=== PATIENT | male | born 1955 | race Caucasian/White ===

== ENCOUNTER 2024-06-28 02:58 | Emergency (ER) | payer OTHER, SELFPAY ==
[2024-06-28 03:13] VITALS: BMI 29.4
--- NOTE | 2024-06-28 03:14 | DOWNTIME ---
There was a [employer] Occupational Downtime on 06/28/2024 from 0100 to 06/28/2024 at 0300. Downtime documentation of patient's care, including medication administrations, has been reconciled in the electronic record per guidelines. Refer to the
patient's paper chart under the miscellaneous tab to see printed paper medication records and downtime forms.
--- NOTE | 2024-06-28 03:16 | ED.GENMED ---
History of Present Illness
<SHAN Mireles - Last Filed: 06/28/24 05:52>
General
Chief Complaint: Abdominal Pain
Time Seen by Provider: 06/28/24 03:16
History of Present Illness
History of Present Illness:
Patient is a 68 year old male presenting to the ED with complaints of left flank and abdominal pain x 1 day. It started soon after he ate a salad with pickles in it and described it as a sharp pain that radiated from his left abdomen to his
left flank. Something like this has never happened before and he rates the pain an 8/10. He tried taking tums and Advil which did not alleviate symptoms. Patient states he tried eating bananas and drank and had a non-bloody vomit episode. He was
able to fall asleep and woke up this morning with not as much pain. Throughout the day he was fine until a couple of hours ago his pain flared up again. His last bowel movement was Wednesday and it was normal. Patient denies any chest pain palpitations
shortness of breath hematochezia fever dysuria changes in urinary frequency urgency.
Patient has a PMH of HTN controlled on medication. He has no allergies and denies any smoking or alcohol use. Patient denies any history of kidney stones, pancreatitis, gallstones, and diverticulitis. Patient states he has an appointment for a
colonoscopy in September.
Review of Systems
<SHAN Mireles - Last Filed: 06/28/24 05:52>
Review of Systems
Constitutional: Reports no symptoms
Respiratory: Reports no symptoms
Cardiac: Reports no symptoms
ABD/GI: Reports abdominal pain, nausea and vomiting
: Reports no symptoms
Phy Exam
<SHAN Mireles - Last Filed: 06/28/24 05:52>
Physical Exam
Physical Exam:
see physical
Cardiovascular Exam
Cardiovascular Exam: regular rate/rhythm, no edema, no gallop, no JVD and no murmur
Pulmonary Exam
Pulmonary Exam: lungs clear, no respiratory distress, no rales, chest non tender, no crackles, no rhonchi, no stridor, no wheezing and no cough
Gastrointestinal Exam
Gastrointestinal Exam: normal bowel sounds, no organomegaly, no pulsatile mass, non distended, cva tenderness and tender
Palpation: left lower quadrant: Moderate tenderness
Course
<SHAN Mireles - Last Filed: 06/28/24 05:52>
Orders/Labs/Results
Orders:
Orders
06/28/24
Electrocardiogram (*1) Stat
Reason for Study: Chest Pain
Comment: DONE
06/28/24 02:46
Complete Blood Count/With Diff Routine
Comprehensive Metabolic Panel Routine
Lipase Routine
Protime/PTT Routine
Troponin I Routine
Urinalysis Reflex To Culture Routine
Urine Microscopic Reflex Cult Routine
06/28/24 03:23
CT Abd/pel Without Iv Or Oral Urgent
Comment:
Reason For Exam: left flank pain\\
06/28/24 04:37
0.9% Sodium Chloride 1000 ml [Nss] 1,000 ml IV BOLUS
06/28/24 05:12
HYDROmorphone [Dilaudid] 0.5 mg IV NOW STA
Metoprolol [Lopressor] 5 mg IV NOW STA
06/28/24 05:43
Troponin I Urgent
Abnormal Lab Results
06/28/24
02:46
WBC 10.9 H 10^3/uL
(4.8-10.8)
MCH 32.1 H pg
(27.0-31.0)
MPV 10.5 H fL
(7.4-10.4)
Absolute Neuts (auto) 9.1 H 10^3/uL
(1.4-6.5)
Absolute Lymphs (auto) 0.8 L 10^3/uL
(1.2-3.4)
Absolute Monos (auto) 0.9 H 10^3/uL
(0.1-0.6)
Neutrophils % 83.8 H %
(42.2-75.2)
Lymphocytes % 7.3 L %
(20.5-51.1)
Carbon Dioxide 31 H mmol/L
(22-30)
Creatinine 1.8 H mg/dL
(0.7-1.3)
Glucose 114 H mg/dl
(70-99)
Calcium 10.7 H mg/dl
(8.4-10.2)
Ur Occult Blood Reflex 2+ A
(Negative)
Urine RBC 30-40 A /HPF
(0-2)
06/28/24 02:46
06/28/24 02:46
Vital Signs
Initial and Last Documented VS:
Initial Vital Signs
BP
182/88
06/28/24 03:20
Last Documented Vital Signs
Pulse BP Pulse Ox
56 133/82 99
06/28/24 06:00 06/28/24 06:00 06/28/24 06:00
<Beau Sow, DO - Last Filed: 06/28/24 06:39>
Orders/Labs/Results
Orders:
Orders
06/28/24
Electrocardiogram (*1) Stat
Reason for Study: Chest Pain
Comment: DONE
06/28/24 02:46
Complete Blood Count/With Diff Routine
Comprehensive Metabolic Panel Routine
Lipase Routine
Protime/PTT Routine
Troponin I Routine
Urinalysis Reflex To Culture Routine
Urine Microscopic Reflex Cult Routine
06/28/24 03:23
CT Abd/pel Without Iv Or Oral Urgent
Comment:
Reason For Exam: left flank pain\\
06/28/24 04:37
0.9% Sodium Chloride 1000 ml [Nss] 1,000 ml IV BOLUS
06/28/24 05:12
HYDROmorphone [Dilaudid] 0.5 mg IV NOW STA
Metoprolol [Lopressor] 5 mg IV NOW STA
06/28/24 05:43
Troponin I Urgent
Abnormal Lab Results
06/28/24
02:46
WBC 10.9 H 10^3/uL
(4.8-10.8)
MCH 32.1 H pg
(27.0-31.0)
MPV 10.5 H fL
(7.4-10.4)
Absolute Neuts (auto) 9.1 H 10^3/uL
(1.4-6.5)
Absolute Lymphs (auto) 0.8 L 10^3/uL
(1.2-3.4)
Absolute Monos (auto) 0.9 H 10^3/uL
(0.1-0.6)
Neutrophils % 83.8 H %
(42.2-75.2)
Lymphocytes % 7.3 L %
(20.5-51.1)
Carbon Dioxide 31 H mmol/L
(22-30)
Creatinine 1.8 H mg/dL
(0.7-1.3)
Glucose 114 H mg/dl
(70-99)
Calcium 10.7 H mg/dl
(8.4-10.2)
Ur Occult Blood Reflex 2+ A
(Negative)
Urine RBC 30-40 A /HPF
(0-2)
06/28/24 02:46
06/28/24 02:46
Vital Signs
Initial and Last Documented VS:
Initial Vital Signs
BP
182/88
06/28/24 03:20
Last Documented Vital Signs
Pulse BP Pulse Ox
56 133/82 99
06/28/24 06:00 06/28/24 06:00 06/28/24 06:00
<SHAN Mireles - Last Filed: 06/28/24 05:52>
MDM/Problems Addressed
Differential Diagnosis Includes:
Acute pancreatitis, constipation, diverticulitis, nephrolithiasis
MDM/Problems Addressed:
Get blood work urine and give pain meds 514a update blood pressure elevated give more pain meds and lopressor.
<Beau Sow DO - Last Filed: 06/28/24 06:39>
*Critical Care Note
Total Time (30-74mins, 75-104mins- exclusive of procedures): Not Applicable
<Beau Sow DO - Last Filed: 06/28/24 06:39>
Update Note
Update Note:
Patient complaining of increased pain again. His blood pressure has risen. Will get a dose of Lopressor and some pain medication.
ED Attending Note
<SHAN Mireles - Last Filed: 06/28/24 05:52>
-
Portions of this chart may have been created with voice recognition software.� Occasional wrong word or��sound alike� substitutions may have occurred due to the inherent limitations of voice recognition software.
<Beau Sow DO - Last Filed: 06/28/24 06:39>
ED Attending Note
Patient seen and examined by attending physician: Yes
I performed the substantive portion of visit, reviewed & personally made and approve the management plan that is documented in note by myself or BLANCA.: Yes
ED Attending Note:
Pleasant 68-year-old male presents with left-sided flank pain that radiates around to his abdomen that has been present for the last day. He states that he ate a meal with questionable pickles. He states that shortly after eating these possibly
because he developed this left flank pain. He denies fever or chills. He states that the pain is intermittent in nature. Prior to receiving pain medications he states that his pain was 8 out of 10. His gave him Advil which did not
seem to help his symptoms. Patient states that much of the day today, the pain was improved. Tonight it flared up and caused him severe discomfort. Upon arrival he states that the pain was very severe. He was given morphine and Zofran which
helped to quell some of his symptoms. Patient denies any other complaints. Patient was seen in conjunction with the PA student. I have reviewed and agree with the history and treatment plan presented. On my independent physical exam, patient is
awake, alert, and oriented x3
Discharge Plan
Departure
Patient Disposition: Home (Routine Discharge)
Date of Disposition: 06/28/24
Time of Disposition: 06:27
Patient with high blood pressure during this ER visit?: No
Condition: Good
Discharge Problem:
Kidney stone
Instructions: Kidney Stones (DC), How to Strain Your Urine, BLOOD PRESSURE
Prescriptions:
New
oxycodone-acetaminophen [Percocet] 5-325 mg Tablet
1 tab PO Q6HPRN PRN (Reason: pain) Qty: 10 0RF
tamsulosin [Flomax] 0.4 mg Capsule
0.4 mg PO DAILY Qty: 7 0RF
diclofenac sodium 75 mg tablet,delayed release (DR/EC)
75 mg PO BID Qty: 10 0RF
Referrals:
Jordan Bridges MD [Family Provider] -
Rashel Rush Jr., MD [Active] - Call in 1-3 days for appt
Activity Restrictions/Additional Instructions:
It was a pleasure meeting you and taking part in your care. We hope for your continued healing and wellness.
Please read discharge instructions in their entirety. However, they are for general education and may not describe your exact diagnosis at discharge. Information on your ER visit and medical conditions were discussed with you along with appropriate
follow up information...
If indicated, please take your medications as instructed and indicated on discharge paperwork.
Please schedule a follow up appointment as directed. Call to schedule an appointment
Please return to the emergency department with ANY change in, persisting, or worsening of symptoms. If any of your symptoms do not improve, or persist, or become more severe within 6-12 hours, please return to the emergency department for further
care.
Please return to the emergency department if you develop a headache, neck pain/stiffness, fever greater than 100.4F, chest pain, shortness of breath, persistent nausea, vomiting, slurred speech, difficulty walking, numbness/tingling, weakness, signs
of infection or any other symptoms that are worrisome to you.
If you have any questions or concerns please do not hesitate to call the Hospital at or E-mail me directly at [email or web address]
Interventions
Interventions:
*Risk Screen - Suicide Last Done: 06/28/24 03:16
*General Assessment Last Done: 06/28/24 03:16
*Neglect/Abuse Screening Last Done: 06/28/24 03:16
*ED COVID-19 Vaccine History Last Done: 06/28/24 03:16
IV-Howwnc-Voyjzpckhi Assessment Last Done: 06/28/24 03:14
Discharge Date and Time
Print Language: WELSH
[2024-06-28 03:20] VITALS: BP 182/88
[2024-06-28 03:30] LABS: % Basophils 0.3 % (0-2); % Eosinophils 0.1 % (0-6); % Immature Granulocytes 0.3 % (0-0.5); % Lymphocytes 7.3 % (20.5-51.1); % Monocytes 8.2 % (1.7-9.3); % Neutrophils 83.8 % (42.2-75.2); Absolute Lymphocytes 0.8 10^3/uL (1.2-3.4); Absolute Monocytes 0.9 10^3/uL (0.1-0.6); Absolute Neutrophils 9.1 10^3/uL (1.4-6.5); Hematocrit 44.2 % (39.0-52.0); Hemoglobin 15.4 g/dL (13.0-18.0); Mean Corp Hgb Conc. 34.8 g/dL (33.0-37.0); Mean Corpuscular Hgb 32.1 pg (27.0-31.0); Mean Corpuscular Volume 92.1 fL (80.0-94.0); Mean Platelet Volume 10.5 fL (7.4-10.4); Nucleated Red Blood Cells % 0 % (-); Platelet Count 226 10^3/uL (130-400); Red Cell Dist. Width 12.7 % (11.5-14.5); White Blood Cell Count 10.9 10^3/uL (4.8-10.8)
[2024-06-28 03:31] LABS: APTT 28.2 Sec (23.4-35.0); INR 1.12; PT 14.2 Sec (11.4-14.6)
[2024-06-28 03:32] LABS: Urine Albumin Negative (Neg - Trace); Urine Bilirubin Negative (Negative); Urine Character Clear (Clear); Urine Color Yellow; Urine Glucose Negative (Negative); Urine Ketone Negative (Negative); Urine Leukocyte Negative (Negative); Urine Nitrite Negative (Negative); Urine Occult Blood 2+ (Negative); Urine Specific Gravity 1.015 (<1.030); Urine Urobilinogen Negative (Neg - 1+); Urine pH 6.5 (5.0-9.0)
[2024-06-28 03:35] LABS: Urine Red Blood Cell 30-40 /HPF (0-2); Urine Squamous Cell 0-2 /LPF (Few); Urine White Cell 0-2 /HPF (0-5)
[2024-06-28 03:37] VITALS: BP 174/97
[2024-06-28 03:37] LABS: ALT (SGPT) 27 U/L (0-50); AST (SGOT) 35 U/L (17-59); Albumin 4.6 g/dl (3.5-5.0); Alkaline Phosphatase 96 U/L (38-126); Blood Urea Nitrogen 15 mg/dl (9-20); Calcium 10.7 mg/dl (8.4-10.2); Carbon Dioxide 31 mmol/L (22-30); Chloride 99 mmol/L (98-107); Estimated Creatinine Clearance 42 ml/min; Glucose 114 mg/dl (70-99); Potassium 4.5 mmol/L (3.5-5.1); Sodium 140 mmol/L (135-145); Total Bilirubin 1.1 mg/dl (0.2-1.3); Total Protein 7.4 g/dl (6.3-8.2); Troponin I 0.029 ng/ml
[2024-06-28 03:46] LABS: Lipase 68 U/L (23-300)
[2024-06-28 04:00] VITALS: BP 175/92
[2024-06-28] MEDS: NSS 1000 IV (04:40)
[2024-06-28 05:11] VITALS: BP 210/109
[2024-06-28] MEDS: LOPRESSOR 5 MG IV (05:15)
[2024-06-28] MEDS: DILAUDID 0.5 MG IV (05:16)
[2024-06-28 05:36] VITALS: BP 172/86
[2024-06-28 06:00] VITALS: BP 133/82
[2024-06-28 06:14] LABS: Troponin I 0.023 ng/ml
== END 2024-06-28 07:06 | disposition home or self-care (01) ==
LOC: EMR 02:58
PROVIDERS: EMERGENCY PHYSICIAN Student in an Organized Health Care Education/Training Program; FAMILY PHYSICIAN Family Medicine
DX: N20.0 Calculus of kidney (principal); I10 Essential (primary) hypertension; Z79.899 Other long term (current) drug therapy
CPT/HCPCS: 99284; 96374; 96375; 96361; 74176; 80053; 81003; 81015; 83690; 84484; 85025; 85610; 85730; 93005